=== PATIENT | male | born 1965 | race Caucasian/White ===

== ENCOUNTER 2017-03-15 20:53 | Inpatient (IN) | payer SELFPAY ==
[~2017-03-15] VITALS: Ht 180.3 cm; Wt 50.1 kg
[2017-03-15 22:03] LABS: EOSINOPHIL (%) 0 % (0-5); HEMATOCRIT 43.9 % (38.0-50.0); IMMATURE GRANULOCYTE COUNT 0.2 K/uL; INSTRUMENT ABS NEUTROPHIL CT 13.8 K/uL; MCH 32.5 PG (29.0-34.0); MCHC 35.5 G/DL (30.0-36.0); MCV 91.5 FL (86-99); MONOCYTE (%) 5.6 % (3-12); MONOCYTE COUNT 0.9 K/uL (0-0.8); NEUTROPHIL (%) 87.1 % (45-76); NEUTROPHIL COUNT 13.8 K/uL (1.8-6.4); NRBC (%) 0.2 /100 WBC (0-0); PLATELET COUNT 207 K/uL (156-360); RBC DIS.WIDTH-SD 44.1 % (39-53); WHITE BLOOD COUNT 15.8 K/uL (4.1-10.2)
[2017-03-15 22:17] LABS: CHLORIDE 112 mEq/L (99-109); POTASSIUM 3.4 mEq/L (3.7-5.4); SODIUM 143 mEq/L (136-147)
[2017-03-15 22:19] LABS: GLUCOSE 174 mg/dL (70-99)
[2017-03-15 22:20] LABS: ANION GAP 17 MEQ/L (2-14)
[2017-03-15 22:21] LABS: TOTAL BILIRUBIN 0.6 mg/dL (0.0-1.0)
[2017-03-15 22:22] LABS: SERUM ETHYL ALCOHOL < 10 mg/dL
[2017-03-15 22:23] LABS: ALKALINE PHOSPHATASE 98 IU/L (3-129); GFR ESTIMATE (CALCULATED) > 59 mL/min/
[2017-03-15 22:24] LABS: DIRECT BILIRUBIN 0.3 mg/dL (0.0-0.3); UREA NITROGEN (BUN) 75 mg/dL (9-23)
[2017-03-15 22:26] LABS: LIPASE 121 U/L (1.0-51.0)
[2017-03-15 22:32] LABS: TROP-I INTERPRETATION NEGATIVE; TROPONIN-I 0.02 ng/mL (0.0-0.30)
[2017-03-15 23:40] LABS: CREATINE KINASE 14 IU/L (1-294)
[2017-03-16 00:19] LABS: BASE EXCESS -6.5 mEq/L (-3 to +3); BICARBONATE 16.5 mEq/L (22-26); CARBOXY HGB 1.7 % (0-5); COMMENTS - BLOOD GASES C+A+; FI02 21 %; O2 FLOW 0 L/MIN; PCO2 26 mm Hg (35-45); PO2 89 mm Hg (80-100); SITE RR; pH 7.41 (7.35-7.45)
[2017-03-16 01:53] LABS: MAGNESIUM 2.6 mg/dL (1.3-2.7)
[2017-03-16 04:38] LABS: INTER. NORMALIZED RATIO 1.6; PROTHROMBIN TIME 17.8 SEC (10.2-12.9)
[2017-03-16 04:41] LABS: CHLORIDE 116 mEq/L (99-109); POTASSIUM 3.2 mEq/L (3.7-5.4); SODIUM 145 mEq/L (136-147)
[2017-03-16 04:43] LABS: MAGNESIUM 2.2 mg/dL (1.3-2.7)
[2017-03-16 04:45] LABS: ANION GAP 11 MEQ/L (2-14)
[2017-03-16 04:46] LABS: GLUCOSE 113 mg/dL (70-99); TOTAL BILIRUBIN 0.6 mg/dL (0.0-1.0)
[2017-03-16 04:47] LABS: ALKALINE PHOSPHATASE 79 IU/L (3-129)
[2017-03-16 04:48] LABS: GFR ESTIMATE (CALCULATED) > 59 mL/min/
[2017-03-16 04:49] LABS: UREA NITROGEN (BUN) 56 mg/dL (9-23)
[2017-03-16 04:51] LABS: CREATINE KINASE 7 IU/L (1-294)
[2017-03-16 05:03] LABS: EOSINOPHIL (%) 0.1 % (0-5); HEMATOCRIT 37.1 % (38.0-50.0); IMMATURE GRANULOCYTE (%) 0.4 % (0.0-0.7); INSTRUMENT ABS NEUTROPHIL CT 8.4 K/uL; LYMPHOCYTE COUNT 1.3 K/uL (1.0-2.8); MCH 32.7 PG (29.0-34.0); MCHC 35.6 G/DL (30.0-36.0); MCV 91.8 FL (86-99); MEAN PLAT.VOLUME 10.3 uM^3 (9.0-12.4); MONOCYTE (%) 7.1 % (3-12); MONOCYTE COUNT 0.8 K/uL (0-0.8); NEUTROPHIL (%) 79.8 % (45-76); NEUTROPHIL COUNT 8.4 K/uL (1.8-6.4); PLATELET COUNT 169 K/uL (156-360); RBC DIS.WIDTH-CV 13.2 % (11.8-14.6); RBC DIS.WIDTH-SD 44.2 % (39-53); RED BLOOD COUNT 4.04 M/uL (4.00-5.50); WHITE BLOOD COUNT 10.5 K/uL (4.1-10.2)
[2017-03-16 05:18] LABS: ERTH.SED.RATE 5 MM/HR (0-20)
[2017-03-16 06:29] LABS: HDL CHOLESTEROL 24 MG/DL (Desirable>=40); LDL CHOLESTEROL 87 mg/dL (Desirable<100); NON-HDL CHOLESTEROL 109 mg/dL (Desirable<160); TOTAL CHOLESTEROL 133 mg/dL (Desirable<200); TRIGLYCERIDES 112 MG/DL (Normal: <150)
[2017-03-16 07:29] LABS: POINT-OF-CARE METER ID UU13113747
[2017-03-16 07:53] LABS: Estimated Average Glucose 134 mg/dL (70-123); HEMOGLOBIN A1c (GLYCOHEMOGLOB) 6.3 % HGB (Below 5.7)
[2017-03-16 09:01] LABS: ADD MIUA? YES; BILIRUBIN NEGATIVE; BLOOD SMALL; COLOR YELLOW ((YELLOW)); GLUCOSE (STRIP) NEGATIVE; KETONES 20; LEUKOCYTES NEGATIVE; NITRITE NEGATIVE; PROTEIN (STRIP) NEGATIVE; UROBILINOGEN 0.2 MG/DL (0.2-1.0)
[2017-03-16 09:16] LABS: AMPHETAMINE NEGATIVE (500 ng/mL); BARBITURATES NEGATIVE (200 ng/mL); BENZODIAZEPINES NEGATIVE (150 ng/mL); COCAINE NEGATIVE (150 ng/mL); INTERNAL CONTROLS VALID? YES; METHADONE NEGATIVE (200 ng/mL); METHAMPHETAMINE NEGATIVE (500 ng/mL); OPIATES (MORPHINE) NEGATIVE (100 ng/mL); OXYCODONE NEGATIVE (100 ng/mL); PHENCYCLIDINE NEGATIVE (25 ng/mL); PROPOXYPHENE NEGATIVE (300 ng/mL); THC CANNABINOIDS NEGATIVE (50 ng/mL); TRICYCLIC ANTIDEPRESSANTS NEGATIVE (300 ng/mL)
[2017-03-16 09:22] LABS: BACTERIA NONE SEEN /HPF; EPITHELIAL CELLS RARE /HPF; HYALINE CASTS 0-5 /LPF; MUCUS 3+ /LPF; UCUL ADDED? YES
[2017-03-16 09:34] LABS: SPECIFIC GRAVITY 1.058 (1.000-1.030)
[2017-03-16 12:45] VITALS: BP 145/86
[2017-03-16 12:47] LABS: POINT-OF-CARE METER ID UU14188625
[2017-03-16 16:16] VITALS: BP 105/61
[2017-03-16 19:43] VITALS: BP 106/82
[2017-03-16 21:08] LABS: POINT-OF-CARE METER ID UU13113717
[2017-03-16 23:33] VITALS: BP 88/61
[2017-03-17 03:53] VITALS: BP 142/90
[2017-03-17 06:24] LABS: MCHC 33.6 G/DL (30.0-36.0); MCV 95.2 FL (86-99); MEAN PLAT.VOLUME 10.7 uM^3 (9.0-12.4); PLATELET COUNT 172 K/uL (156-360); RBC DIS.WIDTH-CV 13.2 % (11.8-14.6); RED BLOOD COUNT 3.78 M/uL (4.00-5.50); WHITE BLOOD COUNT 9.1 K/uL (4.1-10.2)
[2017-03-17 06:55] LABS: ALKALINE PHOSPHATASE 76 IU/L (3-129); ANION GAP 11 MEQ/L (2-14); CHLORIDE 115 MEQ/L (99-109); GFR ESTIMATE (CALCULATED) > 59 mL/min/; GLUCOSE 84 mg/dL (70-99); SAMPLE HEMOLYSIS CHECK 0; SAMPLE ICTERIC CHECK 0; SAMPLE LIPEMIA CHECK 0; SODIUM 146 MEQ/L (136-147); TOTAL BILIRUBIN 0.6 MG/DL (0.0-1.0); UREA NITROGEN (BUN) 21 mg/dL (9-23)
[2017-03-17 07:26] LABS: POINT-OF-CARE METER ID UU14174225
[2017-03-17 07:56] VITALS: BP 166/76
[2017-03-17 08:01] VITALS: BP 124/72
[2017-03-17 12:32] LABS: POINT-OF-CARE METER ID UU14174225
[2017-03-17 13:12] VITALS: BP 117/76
[2017-03-17 15:11] LABS: INTERNAL CONTROL VALID? YES
[2017-03-17 16:34] VITALS: BP 120/74
[2017-03-17 16:46] LABS: POINT-OF-CARE METER ID UU14174225
[2017-03-17 20:03] VITALS: BP 104/67
[2017-03-18] VITALS (8 sets, daily range): BP systolic 64–127; BP diastolic 42–80
[2017-03-18 07:13] LABS: HEMATOCRIT 26.3 % (38.0-50.0); MCH 33.6 PG (29.0-34.0); MCHC 34.6 G/DL (30.0-36.0); RBC DIS.WIDTH-CV 13.6 % (11.8-14.6); WHITE BLOOD COUNT 6.2 K/uL (4.1-10.2)
[2017-03-18 07:15] LABS: RED BLOOD COUNT 2.71 M/uL (4.00-5.50)
[2017-03-18 07:24] LABS: ALKALINE PHOSPHATASE 60 IU/L (3-129); ANION GAP 5 MEQ/L (2-14); CHLORIDE 119 MEQ/L (99-109); GFR ESTIMATE (CALCULATED) > 59 mL/min/; GLUCOSE 102 mg/dL (70-99); POTASSIUM 4.2 MEQ/L (3.7-5.4); SAMPLE HEMOLYSIS CHECK 0; SAMPLE ICTERIC CHECK 0; SAMPLE LIPEMIA CHECK 0; SODIUM 147 MEQ/L (136-147); TOTAL BILIRUBIN 0.3 MG/DL (0.0-1.0); UREA NITROGEN (BUN) 9 mg/dL (9-23)
[2017-03-18 08:38] LABS: POINT-OF-CARE METER ID UU13113717
[2017-03-18 08:50] LABS: PLAT.SUFFICIENCY DECREASED; PLATELET COUNT 125 K/uL (156-360)
[2017-03-18 16:06] LABS: EOSINOPHIL (%) 3.4 % (0-5); HEMATOCRIT 25.1 % (38.0-50.0); IMMATURE GRANULOCYTE (%) 0.9 % (0.0-0.7); LYMPHOCYTE COUNT 1.2 K/uL (1.0-2.8); MCH 33.5 PG (29.0-34.0); MCHC 34.3 G/DL (30.0-36.0); MCV 97.7 FL (86-99); MEAN PLAT.VOLUME 11.2 uM^3 (9.0-12.4); MONOCYTE (%) 6.3 % (3-12); NEUTROPHIL (%) 69.7 % (45-76); PLATELET COUNT 121 K/uL (156-360); RBC DIS.WIDTH-CV 13.7 % (11.8-14.6); RBC DIS.WIDTH-SD 48.9 % (39-53); RED BLOOD COUNT 2.57 M/uL (4.00-5.50); WHITE BLOOD COUNT 6.5 K/uL (4.1-10.2)
[2017-03-18 16:07] LABS: EOSINOPHIL COUNT 0.2 K/uL (0-0.3); IMMATURE GRANULOCYTE COUNT 0.1 K/uL; INSTRUMENT ABS NEUTROPHIL CT 4.5 K/uL; MONOCYTE COUNT 0.4 K/uL (0-0.8); NEUTROPHIL COUNT 4.5 K/uL (1.8-6.4); NRBC (%) 0.3 /100 WBC (0-0)
[2017-03-18 16:54] LABS: POINT-OF-CARE METER ID UU13113717
[2017-03-18 21:48] LABS: POINT-OF-CARE METER ID UU13113717
[2017-03-19] VITALS (8 sets, daily range): BP systolic 103–143; BP diastolic 64–90
[2017-03-19 06:12] LABS: EOSINOPHIL (%) 2.9 % (0-5); EOSINOPHIL COUNT 0.2 K/uL (0-0.3); IMMATURE GRANULOCYTE COUNT 0.1 K/uL; INSTRUMENT ABS NEUTROPHIL CT 3.2 K/uL; LYMPHOCYTE COUNT 1.4 K/uL (1.0-2.8); MCH 33.8 PG (29.0-34.0); MCHC 35.2 G/DL (30.0-36.0); MCV 95.9 FL (86-99); MEAN PLAT.VOLUME 11.1 uM^3 (9.0-12.4); MONOCYTE (%) 6.3 % (3-12); MONOCYTE COUNT 0.3 K/uL (0-0.8); NEUTROPHIL (%) 62.3 % (45-76); NEUTROPHIL COUNT 3.2 K/uL (1.8-6.4); PLATELET COUNT 114 K/uL (156-360); RBC DIS.WIDTH-CV 13.6 % (11.8-14.6); RBC DIS.WIDTH-SD 47.5 % (39-53); RED BLOOD COUNT 2.19 M/uL (4.00-5.50); WHITE BLOOD COUNT 5.2 K/uL (4.1-10.2)
[2017-03-19 06:36] LABS: ALKALINE PHOSPHATASE 59 IU/L (3-129); ANION GAP 4 MEQ/L (2-14); CHLORIDE 112 MEQ/L (99-109); GFR ESTIMATE (CALCULATED) > 59 mL/min/; GLUCOSE 96 mg/dL (70-99); POTASSIUM 3.4 MEQ/L (3.7-5.4); SAMPLE HEMOLYSIS CHECK 0; SAMPLE ICTERIC CHECK 0; SAMPLE LIPEMIA CHECK 0; SODIUM 140 MEQ/L (136-147); UREA NITROGEN (BUN) 11 mg/dL (9-23)
[2017-03-19 06:39] LABS: TOTAL BILIRUBIN 0.4 MG/DL (0.0-1.0)
[2017-03-19 06:50] LABS: INTER. NORMALIZED RATIO 1.1; PROTHROMBIN TIME 11.6 SEC (10.2-12.9)
[2017-03-19 11:33] LABS: POINT-OF-CARE METER ID UU13113717
[2017-03-19 17:16] LABS: POINT-OF-CARE METER ID UU14174225
[2017-03-19 17:25] LABS: POINT-OF-CARE METER ID UU14174225
[2017-03-19 22:24] LABS: EOSINOPHIL COUNT 0.2 K/uL (0-0.3); HEMATOCRIT 26.2 % (38.0-50.0); IMMATURE GRANULOCYTE (%) 0.6 % (0.0-0.7); INSTRUMENT ABS NEUTROPHIL CT 4.5 K/uL; LYMPHOCYTE COUNT 1.1 K/uL (1.0-2.8); MCH 31.1 PG (29.0-34.0); MCHC 34.4 G/DL (30.0-36.0); MEAN PLAT.VOLUME 11.5 uM^3 (9.0-12.4); MONOCYTE (%) 7.5 % (3-12); MONOCYTE COUNT 0.5 K/uL (0-0.8); NEUTROPHIL (%) 70.4 % (45-76); NEUTROPHIL COUNT 4.5 K/uL (1.8-6.4); PLATELET COUNT 107 K/uL (156-360); RBC DIS.WIDTH-CV 15.7 % (11.8-14.6); RBC DIS.WIDTH-SD 52.1 % (39-53); WHITE BLOOD COUNT 6.4 K/uL (4.1-10.2)
[2017-03-19 22:25] LABS: MCV 90.7 FL (86-99); RED BLOOD COUNT 2.89 M/uL (4.00-5.50)
[2017-03-19 23:03] LABS: POINT-OF-CARE METER ID UU13113717
[2017-03-20 03:17] VITALS: BP 111/69
[2017-03-20 06:09] LABS: HEMATOCRIT 25.1 % (38.0-50.0); MCH 31.3 PG (29.0-34.0); MCHC 34.7 G/DL (30.0-36.0); MCV 90.3 FL (86-99); MEAN PLAT.VOLUME 11.3 uM^3 (9.0-12.4); PLATELET COUNT 114 K/uL (156-360); RBC DIS.WIDTH-CV 15.7 % (11.8-14.6); RBC DIS.WIDTH-SD 51.4 % (39-53); RED BLOOD COUNT 2.78 M/uL (4.00-5.50); WHITE BLOOD COUNT 6.1 K/uL (4.1-10.2)
[2017-03-20 06:40] LABS: ALKALINE PHOSPHATASE 77 IU/L (3-129); ANION GAP 6 MEQ/L (2-14); CHLORIDE 106 MEQ/L (99-109); GFR ESTIMATE (CALCULATED) > 59 mL/min/; GLUCOSE 155 mg/dL (70-99); POTASSIUM 2.9 MEQ/L (3.7-5.4); SAMPLE HEMOLYSIS CHECK 0; SAMPLE ICTERIC CHECK 0; SAMPLE LIPEMIA CHECK 0; SODIUM 136 MEQ/L (136-147); TOTAL BILIRUBIN 0.5 MG/DL (0.0-1.0); UREA NITROGEN (BUN) 4 mg/dL (9-23)
[2017-03-20 07:25] VITALS: BP 146/85
[2017-03-20 11:43] LABS: POINT-OF-CARE METER ID UU13113717
[2017-03-20 12:33] LABS: MAGNESIUM 1.6 mg/dl (1.3-2.7)
[2017-03-20 15:54] LABS: POINT-OF-CARE METER ID UU13113717
[2017-03-20 21:19] LABS: POINT-OF-CARE METER ID UU13113717; POINT-OF-CARE USER ID 610211320
[2017-03-20 23:45] VITALS: BP 101/61
[2017-03-21 06:22] LABS: EOSINOPHIL (%) 2.9 % (0-5); EOSINOPHIL COUNT 0.1 K/uL (0-0.3); HEMATOCRIT 25.6 % (38.0-50.0); IMMATURE GRANULOCYTE (%) 0.5 % (0.0-0.7); INSTRUMENT ABS NEUTROPHIL CT 3.2 K/uL; LYMPHOCYTE COUNT 0.7 K/uL (1.0-2.8); MCH 31.2 PG (29.0-34.0); MCV 91.8 FL (86-99); MEAN PLAT.VOLUME 11.8 uM^3 (9.0-12.4); MONOCYTE (%) 9.3 % (3-12); MONOCYTE COUNT 0.4 K/uL (0-0.8); NEUTROPHIL COUNT 3.2 K/uL (1.8-6.4); PLATELET COUNT 116 K/uL (156-360); RBC DIS.WIDTH-CV 16.2 % (11.8-14.6); RBC DIS.WIDTH-SD 53.3 % (39-53); RED BLOOD COUNT 2.79 M/uL (4.00-5.50); WHITE BLOOD COUNT 4.4 K/uL (4.1-10.2)
[2017-03-21 06:54] LABS: ALKALINE PHOSPHATASE 85 IU/L (3-129); ANION GAP 6 MEQ/L (2-14); CHLORIDE 109 MEQ/L (99-109); GFR ESTIMATE (CALCULATED) > 59 mL/min/; POTASSIUM 3.4 MEQ/L (3.7-5.4); SAMPLE HEMOLYSIS CHECK 0; SAMPLE ICTERIC CHECK 0; SAMPLE LIPEMIA CHECK 0; SODIUM 138 MEQ/L (136-147); TOTAL BILIRUBIN 0.5 MG/DL (0.0-1.0); UREA NITROGEN (BUN) 6 mg/dL (9-23)
[2017-03-21 06:55] LABS: GLUCOSE 93 mg/dL (70-99)
[2017-03-21 07:53] VITALS: BP 142/83
[2017-03-21 12:35] LABS: POINT-OF-CARE METER ID UU14174225
[2017-03-21 21:59] LABS: POINT-OF-CARE METER ID UU14174225
[2017-03-21 23:49] VITALS: BP 129/72
[2017-03-22 06:18] LABS: HEMATOCRIT 28.5 % (38.0-50.0); MCH 31.1 PG (29.0-34.0); MCHC 33.3 G/DL (30.0-36.0); MCV 93.4 FL (86-99); MEAN PLAT.VOLUME 11.3 uM^3 (9.0-12.4); PLATELET COUNT 145 K/uL (156-360); RBC DIS.WIDTH-CV 16.7 % (11.8-14.6); RBC DIS.WIDTH-SD 56.1 % (39-53); RED BLOOD COUNT 3.05 M/uL (4.00-5.50); WHITE BLOOD COUNT 5.2 K/uL (4.1-10.2)
[2017-03-22 06:41] LABS: ALKALINE PHOSPHATASE 92 IU/L (3-129); ANION GAP 7 MEQ/L (2-14); CHLORIDE 109 MEQ/L (99-109); GFR ESTIMATE (CALCULATED) > 59 mL/min/; GLUCOSE 128 mg/dL (70-99); POTASSIUM 3.8 MEQ/L (3.7-5.4); SAMPLE HEMOLYSIS CHECK 0; SAMPLE ICTERIC CHECK 0; SAMPLE LIPEMIA CHECK 0; SODIUM 139 MEQ/L (136-147); TOTAL BILIRUBIN 0.5 MG/DL (0.0-1.0); UREA NITROGEN (BUN) 5 mg/dL (9-23)
[2017-03-22 08:45] VITALS: BP 168/90
[2017-03-22 16:27] VITALS: BP 123/75
[2017-03-22 23:01] LABS: POINT-OF-CARE METER ID UU13113717
[2017-03-22 23:38] VITALS: BP 109/72
[2017-03-23 01:06] LABS: PROTHROMBIN TIME 10.8 SEC (10.2-12.9)
[2017-03-23 01:07] LABS: CHLORIDE 108 mEq/L (99-109); POTASSIUM 3.6 mEq/L (3.7-5.4); SODIUM 138 mEq/L (136-147)
[2017-03-23 01:08] LABS: GLUCOSE 97 mg/dL (70-99)
[2017-03-23 01:09] LABS: PTT 24.9 SEC (25-37)
[2017-03-23 01:10] LABS: ANION GAP 8 MEQ/L (2-14); TOTAL BILIRUBIN 0.5 mg/dL (0.0-1.0)
[2017-03-23 01:12] LABS: GFR ESTIMATE (CALCULATED) > 59 mL/min/; SERUM ETHYL ALCOHOL < 10 mg/dL
[2017-03-23 01:13] LABS: DIRECT BILIRUBIN 0.2 mg/dL (0.0-0.3); UREA NITROGEN (BUN) 4 mg/dL (9-23)
[2017-03-23 01:14] LABS: ALKALINE PHOSPHATASE 109 IU/L (3-129)
[2017-03-23 06:59] LABS: HEMATOCRIT 26.3 % (38.0-50.0); MCH 33.3 PG (29.0-34.0); MCHC 35.4 G/DL (30.0-36.0); MCV 94.3 FL (86-99); RBC DIS.WIDTH-CV 16.9 % (11.8-14.6); RBC DIS.WIDTH-SD 56.3 % (39-53); RED BLOOD COUNT 2.79 M/uL (4.00-5.50); WHITE BLOOD COUNT 5.8 K/uL (4.1-10.2)
[2017-03-23 07:25] LABS: ALKALINE PHOSPHATASE 93 IU/L (3-129); ANION GAP 6 MEQ/L (2-14); CHLORIDE 105 MEQ/L (99-109); GFR ESTIMATE (CALCULATED) > 59 mL/min/; GLUCOSE 90 mg/dL (70-99); POTASSIUM 3.4 MEQ/L (3.7-5.4); SAMPLE HEMOLYSIS CHECK 0; SAMPLE ICTERIC CHECK 0; SAMPLE LIPEMIA CHECK 0; SODIUM 136 MEQ/L (136-147); TOTAL BILIRUBIN 0.4 MG/DL (0.0-1.0); UREA NITROGEN (BUN) 5 mg/dL (9-23)
[2017-03-23 07:45] LABS: MEAN PLAT.VOLUME 11.6 uM^3 (9.0-12.4); PLAT.SUFFICIENCY ADEQUATE; PLATELET COUNT 164 K/uL (156-360)
[2017-03-23 08:00] VITALS: BP 135/78
[2017-03-23 08:00] LABS: POINT-OF-CARE METER ID UU14174225
[2017-03-23 11:59] LABS: POINT-OF-CARE METER ID UU14174225
[2017-03-23 16:02] VITALS: BP 102/71
[2017-03-23 21:46] LABS: POINT-OF-CARE METER ID UU14174225
[2017-03-24 00:57] VITALS: BP 143/82
[2017-03-24 08:06] VITALS: BP 156/84
[2017-03-24 08:49] LABS: POINT-OF-CARE METER ID UU14174225
[2017-03-24 09:07] LABS: ANION GAP 7 MEQ/L (2-14); CHLORIDE 106 MEQ/L (99-109); GFR ESTIMATE (CALCULATED) > 59 mL/min/; GLUCOSE 92 mg/dL (70-99); SAMPLE HEMOLYSIS CHECK 0; SAMPLE ICTERIC CHECK 0; SAMPLE LIPEMIA CHECK 0; SODIUM 137 MEQ/L (136-147); UREA NITROGEN (BUN) 5 mg/dL (9-23)
[2017-03-24 09:10] LABS: POTASSIUM 4.2 MEQ/L (3.7-5.4)
[2017-03-24 16:01] VITALS: BP 128/79
[2017-03-24 23:39] VITALS: BP 153/80
[2017-03-25 04:08] LABS: INTERNAL CONTROL VALID? YES
[2017-03-25 06:01] LABS: HEMATOCRIT 30.1 % (38.0-50.0); MCH 32.6 PG (29.0-34.0); MCHC 34.2 G/DL (30.0-36.0); MCV 95.3 FL (86-99); MEAN PLAT.VOLUME 11.1 uM^3 (9.0-12.4); PLATELET COUNT 210 K/uL (156-360); RBC DIS.WIDTH-CV 16.5 % (11.8-14.6); RBC DIS.WIDTH-SD 57.4 % (39-53); RED BLOOD COUNT 3.16 M/uL (4.00-5.50); WHITE BLOOD COUNT 6.8 K/uL (4.1-10.2)
[2017-03-25 07:59] LABS: ALKALINE PHOSPHATASE 98 IU/L (3-129); ANION GAP 9 MEQ/L (2-14); CHLORIDE 103 MEQ/L (99-109); GFR ESTIMATE (CALCULATED) > 59 mL/min/; GLUCOSE 104 mg/dL (70-99); POTASSIUM 4.3 MEQ/L (3.7-5.4); SAMPLE HEMOLYSIS CHECK 0; SAMPLE ICTERIC CHECK 0; SAMPLE LIPEMIA CHECK 0; SODIUM 137 MEQ/L (136-147); UREA NITROGEN (BUN) 4 mg/dL (9-23)
[2017-03-25 08:00] LABS: TOTAL BILIRUBIN 0.5 MG/DL (0.0-1.0)
[2017-03-25 08:36] VITALS: BP 134/78
[2017-03-25 15:50] VITALS: BP 108/64
[2017-03-25 16:38] LABS: POINT-OF-CARE METER ID UU13113717
[2017-03-25 23:35] VITALS: BP 137/85
[2017-03-26 06:51] LABS: BASOPHIL COUNT 0.1 K/uL (0-0.1); EOSINOPHIL (%) 1.4 % (0-5); EOSINOPHIL COUNT 0.1 K/uL (0-0.3); IMMATURE GRANULOCYTE (%) 0.3 % (0.0-0.7); INSTRUMENT ABS NEUTROPHIL CT 4.6 K/uL; LYMPHOCYTE COUNT 1.1 K/uL (1.0-2.8); MCH 32.2 PG (29.0-34.0); MCHC 33.8 G/DL (30.0-36.0); MCV 95.4 FL (86-99); MONOCYTE (%) 9.6 % (3-12); MONOCYTE COUNT 0.6 K/uL (0-0.8); NEUTROPHIL (%) 70.3 % (45-76); NEUTROPHIL COUNT 4.6 K/uL (1.8-6.4); PLATELET COUNT 215 K/uL (156-360); RBC DIS.WIDTH-CV 16.4 % (11.8-14.6); RBC DIS.WIDTH-SD 57.7 % (39-53); RED BLOOD COUNT 3.04 M/uL (4.00-5.50); WHITE BLOOD COUNT 6.5 K/uL (4.1-10.2)
[2017-03-26 07:56] VITALS: BP 144/88
[2017-03-26 08:27] LABS: POINT-OF-CARE METER ID UU14174225
[2017-03-26 16:10] VITALS: BP 124/72
[2017-03-26 23:45] VITALS: BP 121/70
[2017-03-27 05:00] LABS: HEMATOCRIT 29.8 % (38.0-50.0); MCH 31.7 PG (29.0-34.0); MCHC 33.9 G/DL (30.0-36.0); MCV 93.4 FL (86-99); MEAN PLAT.VOLUME 10.3 uM^3 (9.0-12.4); PLATELET COUNT 232 K/uL (156-360); RBC DIS.WIDTH-CV 15.9 % (11.8-14.6); RED BLOOD COUNT 3.19 M/uL (4.00-5.50); WHITE BLOOD COUNT 5.7 K/uL (4.1-10.2)
[2017-03-27 05:09] LABS: CHLORIDE 103 mEq/L (99-109); POTASSIUM 4.5 mEq/L (3.7-5.4); SODIUM 136 mEq/L (136-147)
[2017-03-27 05:11] LABS: GLUCOSE 92 mg/dL (70-99)
[2017-03-27 05:12] LABS: ANION GAP 9 MEQ/L (2-14)
[2017-03-27 05:15] LABS: GFR ESTIMATE (CALCULATED) > 59 mL/min/; UREA NITROGEN (BUN) 4 mg/dL (9-23)
[2017-03-27 07:44] VITALS: BP 146/72
[2017-03-27 15:43] VITALS: BP 97/58
[2017-03-27 23:52] VITALS: BP 131/73
[2017-03-28 07:28] VITALS: BP 156/85
[2017-03-28 07:49] LABS: POINT-OF-CARE METER ID UU14174225
[2017-03-28 08:00] LABS: HEMATOCRIT 31.4 % (38.0-50.0); MCH 32.6 PG (29.0-34.0); MCHC 34.4 G/DL (30.0-36.0); MCV 94.9 FL (86-99); MEAN PLAT.VOLUME 10.6 uM^3 (9.0-12.4); PLATELET COUNT 256 K/uL (156-360); RBC DIS.WIDTH-SD 55.8 % (39-53); RED BLOOD COUNT 3.31 M/uL (4.00-5.50); WHITE BLOOD COUNT 7.3 K/uL (4.1-10.2)
[2017-03-28 08:29] LABS: ALKALINE PHOSPHATASE 95 IU/L (3-129); ANION GAP 8 MEQ/L (2-14); CHLORIDE 101 MEQ/L (99-109); GFR ESTIMATE (CALCULATED) > 59 mL/min/; POTASSIUM 4.5 MEQ/L (3.7-5.4); SAMPLE HEMOLYSIS CHECK 0; SAMPLE ICTERIC CHECK 0; SAMPLE LIPEMIA CHECK 0; SODIUM 137 MEQ/L (136-147); TOTAL BILIRUBIN 0.5 MG/DL (0.0-1.0); UREA NITROGEN (BUN) 6 mg/dL (9-23)
[2017-03-28 08:30] LABS: GLUCOSE 117 mg/dL (70-99)
[2017-03-28 15:26] VITALS: BP 144/85
[2017-03-29 00:01] VITALS: BP 133/71
[2017-03-29 07:41] VITALS: BP 153/94
[2017-03-29 07:51] LABS: POINT-OF-CARE METER ID UU14188625
[2017-03-29 15:44] VITALS: BP 113/72
[2017-03-29 23:41] VITALS: BP 120/79
[2017-03-30 07:30] VITALS: BP 137/80
[2017-03-30 15:23] VITALS: BP 121/81
[2017-03-30 23:46] VITALS: BP 121/64
[2017-03-31 08:02] VITALS: BP 135/71
[2017-03-31 15:45] VITALS: BP 129/88
[2017-03-31 23:04] VITALS: BP 121/68
[2017-04-01 08:00] VITALS: BP 119/70
[2017-04-01 08:44] LABS: HEMATOCRIT 32.9 % (38.0-50.0); MCH 31.3 PG (29.0-34.0); MCHC 33.1 G/DL (30.0-36.0); MCV 94.5 FL (86-99); MEAN PLAT.VOLUME 10.2 uM^3 (9.0-12.4); PLATELET COUNT 223 K/uL (156-360); RBC DIS.WIDTH-CV 15.5 % (11.8-14.6); RED BLOOD COUNT 3.48 M/uL (4.00-5.50); WHITE BLOOD COUNT 5.5 K/uL (4.1-10.2)
[2017-04-01 09:09] LABS: ALKALINE PHOSPHATASE 88 IU/L (3-129); ANION GAP 9 MEQ/L (2-14); CHLORIDE 102 MEQ/L (99-109); GFR ESTIMATE (CALCULATED) > 59 mL/min/; GLUCOSE 82 mg/dL (70-99); POTASSIUM 4.4 MEQ/L (3.7-5.4); SAMPLE HEMOLYSIS CHECK 0; SAMPLE ICTERIC CHECK 0; SAMPLE LIPEMIA CHECK 0; SODIUM 136 MEQ/L (136-147); TOTAL BILIRUBIN 0.4 MG/DL (0.0-1.0); UREA NITROGEN (BUN) 7 mg/dL (9-23)
[2017-04-01 17:32] VITALS: BP 126/80
[2017-04-01 23:58] VITALS: BP 128/72
[2017-04-02 06:09] LABS: HEMATOCRIT 29.8 % (38.0-50.0); MCH 31.1 PG (29.0-34.0); MCHC 33.2 G/DL (30.0-36.0); MCV 93.7 FL (86-99); MEAN PLAT.VOLUME 10.5 uM^3 (9.0-12.4); PLATELET COUNT 190 K/uL (156-360); RBC DIS.WIDTH-CV 15.1 % (11.8-14.6); RBC DIS.WIDTH-SD 52.1 % (39-53); RED BLOOD COUNT 3.18 M/uL (4.00-5.50); WHITE BLOOD COUNT 5.4 K/uL (4.1-10.2)
[2017-04-02 06:31] LABS: ALKALINE PHOSPHATASE 82 IU/L (3-129); ANION GAP 3 MEQ/L (2-14); CHLORIDE 102 MEQ/L (99-109); GFR ESTIMATE (CALCULATED) > 59 mL/min/; GLUCOSE 84 mg/dL (70-99); SAMPLE HEMOLYSIS CHECK 0; SAMPLE ICTERIC CHECK 0; SAMPLE LIPEMIA CHECK 0; SODIUM 134 MEQ/L (136-147); TOTAL BILIRUBIN 0.4 MG/DL (0.0-1.0); UREA NITROGEN (BUN) 8 mg/dL (9-23)
[2017-04-02 08:55] VITALS: BP 114/84
[2017-04-02 15:37] VITALS: BP 131/86
[2017-04-02 23:48] VITALS: BP 124/63
[2017-04-03 08:22] VITALS: BP 155/88
[2017-04-03 15:42] VITALS: BP 151/89
[2017-04-03 23:27] VITALS: BP 143/71
[2017-04-04 07:32] VITALS: BP 142/73
[2017-04-04 15:57] VITALS: BP 148/86
[2017-04-05 00:40] VITALS: BP 158/80
[2017-04-05 06:14] LABS: HEMATOCRIT 31.6 % (38.0-50.0); MCH 30.9 PG (29.0-34.0); MCHC 32.6 G/DL (30.0-36.0); MCV 94.9 FL (86-99); MEAN PLAT.VOLUME 10.7 uM^3 (9.0-12.4); PLATELET COUNT 159 K/uL (156-360); RBC DIS.WIDTH-CV 15.1 % (11.8-14.6); RED BLOOD COUNT 3.33 M/uL (4.00-5.50); WHITE BLOOD COUNT 7.9 K/uL (4.1-10.2)
[2017-04-05 06:37] LABS: ALKALINE PHOSPHATASE 99 IU/L (3-129); ANION GAP 9 MEQ/L (2-14); CHLORIDE 101 MEQ/L (99-109); GFR ESTIMATE (CALCULATED) > 59 mL/min/; GLUCOSE 110 mg/dL (70-99); POTASSIUM 4.2 MEQ/L (3.7-5.4); SAMPLE HEMOLYSIS CHECK 0; SAMPLE ICTERIC CHECK 0; SAMPLE LIPEMIA CHECK 0; SODIUM 135 MEQ/L (136-147); UREA NITROGEN (BUN) 9 mg/dL (9-23)
[2017-04-05 06:38] LABS: TOTAL BILIRUBIN 0.5 MG/DL (0.0-1.0)
[2017-04-05 07:40] VITALS: BP 127/69
[2017-04-05 16:10] VITALS: BP 126/67
[2017-04-05 23:37] VITALS: BP 117/69
[2017-04-06 08:04] VITALS: BP 103/72
[2017-04-06 15:49] VITALS: BP 128/80
[2017-04-06 23:45] VITALS: BP 100/60
[2017-04-07 09:02] VITALS: BP 129/73
[2017-04-07 16:02] VITALS: BP 124/69
[2017-04-07 23:42] VITALS: BP 131/83
[2017-04-08 06:27] LABS: HEMATOCRIT 27.9 % (38.0-50.0); IMM.RETIC FRACTION 18.4 % (3-19); MCH 31.4 PG (29.0-34.0); MCV 95.2 FL (86-99); MEAN PLAT.VOLUME 10.4 uM^3 (9.0-12.4); PLATELET COUNT 165 K/uL (156-360); RBC DIS.WIDTH-CV 14.9 % (11.8-14.6); RBC DIS.WIDTH-SD 51.8 % (39-53); RED BLOOD COUNT 2.93 M/uL (4.00-5.50); RETIC HGB EQUIVALENT 32.2 (28-36); WHITE BLOOD COUNT 6.7 K/uL (4.1-10.2)
[2017-04-08 06:49] LABS: ALKALINE PHOSPHATASE 79 IU/L (3-129); ANION GAP 8 MEQ/L (2-14); CHLORIDE 105 MEQ/L (99-109); GFR ESTIMATE (CALCULATED) > 59 mL/min/; GLUCOSE 93 mg/dL (70-99); IRON 78 MCG/DL (35-150); POTASSIUM 4.1 MEQ/L (3.7-5.4); SAMPLE HEMOLYSIS CHECK 0; SAMPLE ICTERIC CHECK 0; SAMPLE LIPEMIA CHECK 0; SODIUM 137 MEQ/L (136-147); TOTAL BILIRUBIN 0.3 MG/DL (0.0-1.0); UREA NITROGEN (BUN) 11 mg/dL (9-23)
[2017-04-08 08:04] LABS: FERRITIN 542 NG/ML (22-322)
[2017-04-08 08:21] VITALS: BP 101/65
[2017-04-08] MEDS ORDERED: ESCITALOPRAM OX10 MG PO (14:01)
[2017-04-08] MEDS ORDERED: K-DUR20 MEQ PO (14:02)
[2017-04-08] MEDS ORDERED: DOCUSATE SODIU100 MG PO (14:02)
[2017-04-08] MEDS ORDERED: Thiamine,Vitamin B1 PO (14:02)
[2017-04-08] MEDS ORDERED: PANTOPRAZOLE SO40 MG PO (14:02)
[2017-04-08] MEDS ORDERED: BUPROPION HCL150 M2 PO (14:02)
[2017-04-08] MEDS ORDERED: FOLIC ACID1 MG PO (14:02)
[2017-04-08 16:17] VITALS: BP 106/71
== END 2017-04-08 18:18 | disposition home or self-care (01) | DRG 70 ==
LOC: EME → EDBD 20:53 → EDOF 03-16 00:11 → 5SOUTH 03-16 00:11 → ENRESERV 03-16 00:14 → EDOF 03-16 07:09 → ENRESERV 03-16 09:51 → 5SOUTH 03-16 12:22
PROVIDERS: Emergency Medicine; Hospitalist; Internal Medicine; Physician Assistant Medical; Specialist
DX: G93.41 Metabolic encephalopathy (principal); E87.4 Mixed disorder of acid-base balance; E46 Unspecified protein-calorie malnutrition; E86.0 Dehydration; F10.27 Alcohol dependence with alcohol-induced persisting dementia; A41.9 Sepsis, unspecified organism; E51.2 Wernicke's encephalopathy; F10.239 Alcohol dependence with withdrawal, unspecified; F17.200 Nicotine dependence, unspecified, uncomplicated; K26.9 Duodenal ulcer, unspecified as acute or chronic, without hemorrhage or perforation; D68.9 Coagulation defect, unspecified; F33.1 Major depressive disorder, recurrent, moderate; E87.6 Hypokalemia; M50.30 Other cervical disc degeneration, unspecified cervical region; D64.9 Anemia, unspecified; S01.01XA Laceration without foreign body of scalp, initial encounter; W06.XXXA Fall from bed, initial encounter; R09.02 Hypoxemia; J44.9 Chronic obstructive pulmonary disease, unspecified; F03.90 Unspecified dementia, unspecified severity, without behavioral disturbance, psychotic disturbance, mood disturbance, and anxiety; K29.60 Other gastritis without bleeding; K25.4 Chronic or unspecified gastric ulcer with hemorrhage; K31.9 Disease of stomach and duodenum, unspecified; K70.9 Alcoholic liver disease, unspecified; K76.0 Fatty (change of) liver, not elsewhere classified; K22.10 Ulcer of esophagus without bleeding; Z68.1 Body mass index [BMI] 19.9 or less, adult; H55.00 Unspecified nystagmus; M47.816 Spondylosis without myelopathy or radiculopathy, lumbar region; Z87.01 Personal history of pneumonia (recurrent); Z82.49 Family history of ischemic heart disease and other diseases of the circulatory system
CPT/HCPCS: 36600; 70450; 70551; 71020; 71250; 72125; 74177; 78582; 80048; 80048 91; 80053; 80061; 80076; 80306 90; 81003; 82140; 82272; 82436; 82550; 82575; 82607; 82728; 82746; 82803; 82948; 83036; 83540; 83605; 83690; 83735; 83930; 83935; 84100; 84133; 84300; 84425 90; 84443; 84484; 85025; 85025 91; 85027; 85045; 85379; 85610; 85651; 85730; 86850; 86900; 86901; 86920; 87040; 87070; 87086; 87205; 88305; 88342 TC; 92610 GN; 93005; 93306; 93880; 94640; 94640 76; 95819; 97530 GO; 97530 GP; 99202; 99281; 99285; A9540; A9567; C9113; G0480; J1650; J1815; J1885; J2543; J3411; J3480; J7030; J7040; J7050; J7120; P9016; S0028

== ENCOUNTER → 2018-03-15 | Outpatient (CLI) | payer OTHER ==
[~2018-03-15] MED LIST: BUPROPION HCL150 M2 PO; DOCUSATE SODIU100 MG PO; ESCITALOPRAM OX10 MG PO; FOLIC ACID1 MG PO; K-DUR20 MEQ PO; PANTOPRAZOLE SO40 MG PO; Thiamine,Vitamin B1 PO
== END | disposition home or self-care (01) ==
LOC: RAD 08:47
DX: K76.0 Fatty (change of) liver, not elsewhere classified (principal)
CPT/HCPCS: 76705